=== PATIENT | male | born 1960 | race Two or more races ===

== ENCOUNTER 2020-04-15 08:34 | Inpatient (IN) | payer OTHER ==
[~2020-04-15] VITALS: Ht 182.9 cm; Wt 117.9 kg
[~2020-04-15 08:34] MED LIST: CEFADROXIL500 MG PO; NABUMETONE750 MG PO; TRIPLE ANTIBIOT15 GM TP
== END 2020-04-17 14:46 | disposition left against medical advice (07) | DRG 392 ==
LOC: ER 08:34 → SEC-K 15:56 → SURG 21:58 → SEC-K 22:16 → SURG 23:20
PROVIDERS: ADMIT Internal Medicine
PROC: BW21Y0Z Computerized Tomography (CT Scan) of Abdomen and Pelvis using Other Contrast, Unenhanced and Enhanced (ICD-10-PCS; principal; 2020-04-15)
DX: K57.32 Diverticulitis of large intestine without perforation or abscess without bleeding (principal); N39.0 Urinary tract infection, site not specified

== ENCOUNTER 2020-09-04 07:14 | Emergency (ER) | payer OTHER ==
[~2020-09-04] VITALS: Ht 182.9 cm; Wt 108.0 kg
[2020-09-04] MEDS ORDERED: VIAGRA100 MG (07:25)
== END 2020-09-04 11:31 | disposition home or self-care (01) ==
LOC: ER 07:14
DX: H81.13 Benign paroxysmal vertigo, bilateral (principal)